=== PATIENT | male | born 1945 | race Caucasian/White ===

== ENCOUNTER → 2020-08-21 16:19 | Outpatient (CLI) | payer MEDICARE, OTHER, SELFPAY ==
[2020-08-21 18:32] LABS: Prostate Specific Antigen 5.74 ng/mL (0.10-4.00)
== END ==
PROVIDERS: Referring Provider Specialist; Visit Provider Specialist
DX: R97.20 Elevated prostate specific antigen [PSA] (principal); N40.3 Nodular prostate with lower urinary tract symptoms; N43.3 Hydrocele, unspecified
CPT/HCPCS: 36415; 51798; 81002; 84153; 99214

== ENCOUNTER → 2020-10-10 08:46 | Outpatient (CLI) | payer MEDICARE, OTHER, SELFPAY ==
[2020-10-10 10:22] LABS: BUN Creatinine Ratio 24.7 (6-22); Blood Urea Nitrogen 21 mg/dL (9-20); Calcium 9.5 mg/dL (8.4-10.2); Carbon Dioxide 26 mmol/L (22-32); Chloride 106 mmol/L (98-107); Estimated Glomerular Filt Rate > 60.0 mL/min (>60); Glucose 101 mg/dL (80-110); HEMOLYSIS < 15 (0-50); Potassium 4.5 mmol/L (3.4-5.1); Sodium 139 mmol/L (137-145)
== END ==
PROVIDERS: Referring Provider Specialist; Visit Provider Specialist
DX: R94.4 Abnormal results of kidney function studies (principal)
CPT/HCPCS: 36415; 80048

== ENCOUNTER → 2020-10-16 09:07 | Outpatient (CLI) | payer MEDICARE, OTHER, SELFPAY ==
--- NOTE | 2020-10-16 09:13 | DI.CT.S_ITS ---
PROCEDURE: CT CHEST ABD PEL W CON INDICATIONS: Prostate cancer TECHNIQUE: After the administration of oral and intravenous contrast, 5 mm thick sections acquired from the lung apices to the symphysis. 5 mm coronal and sagittal reformats were performed, with additional 7 mm coronal MIP reformats through the lungs. For radiation dose reduction, the following was used: automated exposure control, adjustment of mA and/or kV according to patient size. COMPARISON: None. FINDINGS: Image quality: Excellent. CHEST: Lungs and pleura: No acute airspace opacities. 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 No pleural effusions or pneumothorax. Central and peripheral airways appear patent and normal in caliber. Mediastinum: Heart size is normal. No pericardial effusion. A prosthetic aortic valve is present. Moderate coronary artery atherosclerotic calcifications are present. No mediastinal or hilar adenopathy by size criteria. Thoracic aorta and central pulmonary arteries are normal in size. Esophagus is normal in caliber. No hiatal hernia. Chest wall: No axillary or supraclavicular adenopathy by size criteria. Post sternotomy changes are present. A hypoattenuating nodule is seen in the inferior pole of the left thyroid measuring 1.4 x 0.9 cm. ABDOMEN: Solid organs: Liver is normal in size and enhancement. Gallbladder is mildly contracted. Biliary system is non dilated. Pancreas enhances normally. Spleen is normal in size and enhancement. A 1.6 cm coarse calcification is seen within the spleen is nonspecific but may be the sequela of prior hemorrhage or granulomatous disease, and is considered benign. No adrenal nodules. Kidneys demonstrate normal size and enhancement, without hydronephrosis. Small cysts are seen in the left kidney. Peritoneum and bowel: Bowel loops demonstrate normal wall thickness and caliber. Moderate stool is seen throughout the colon. No free fluid or air. Nodes and vessels: No retroperitoneal or mesenteric adenopathy by size criteria. Aorta and inferior vena cava are normal in size. Moderate aortic atherosclerosis. Miscellaneous: Small fat containing periumbilical hernia. PELVIS: Genitourinary: The prostate is mildly enlarged and contains coarse calcifications. The seminal vesicles are symmetric. The bladder is moderately distended with mildly thickened trabeculated wall diffusely, likely secondary to chronic outlet obstruction. Miscellaneous: No inguinal hernias. No significant lymphadenopathy is seen in the pelvis or inguinal regions. Bones: Mild degenerative changes are seen in the spine. No suspicious osteoblastic lesion. No vertebral body compression fractures. IMPRESSION: 1. Mild prostatomegaly which impinges upon the bladder base. Patient's primary prostate cancer is not well visualized with CT. 2. No significant lymphadenopathy in the chest, abdomen, or pelvis. No suspicious osseous lesion is seen. Recommend correlation with nuclear medicine bone scan that is scheduled for later the same day. 3. 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 4. Nonspecific 1.4 cm nodule in the inferior left thyroid lobe. Thyroid ultrasound may be obtained for further evaluation. Dictated by: Ignacio Cummings M.D. on 10/16/2020 at 10:14 Approved by: Ignacio Cummings M.D. on 10/16/2020 at 10:34
--- NOTE | 2020-10-16 09:13 | DI.NM.S_ITS ---
PROCEDURE: NM BONE SCAN WHOLE BODY RADIOPHARMACEUTICAL: 19.8 mCi Tc-99m MDP IV. INDICATIONS: Prostate cancer TECHNIQUE: Delayed whole-body scintigrams were obtained approximately 3-4 hours after intravenous injection of radiotracer. Anterior and posterior views were acquired from vertex to feet. Additional left and right oblique views of the pelvis were obtained. COMPARISON: [facility], CT, CT CHEST ABD PEL W CON, 10/16/2020, 10:20. FINDINGS: There is focal tracer uptake involving the right posteromedial 10th rib. This corresponds to an area of sclerosis seen on the comparison CT dated same day. There is also left posterior 9th rib tracer activity although much more subtle and no definite corresponding CT finding. Elsewhere, no suspicious tracer activity. Bilateral ankle and hindfoot tracer activity is likely degenerative. There is cervical facet tracer activity which is likely degenerative. IMPRESSION: Right 10th rib tracer activity which is suspicious for osseous metastasis given the CT appearance. Additional left 9th rib tracer activity which is technically indeterminate. Dictated by: José Antonio Purdy M.D. on 10/16/2020 at 14:22 Approved by: José Antonio Purdy M.D. on 10/16/2020 at 14:30
== END ==
PROVIDERS: Referring Provider Specialist; Visit Provider Specialist
DX: C61 Malignant neoplasm of prostate (principal); N32.89 Other specified disorders of bladder; J92.9 Pleural plaque without asbestos; E04.1 Nontoxic single thyroid nodule
CPT/HCPCS: 71260; 74177; 78306; A9503

== ENCOUNTER 2020-12-01 09:03 | Inpatient (IN) | payer MEDICARE, OTHER, SELFPAY ==
[2020-11-28 11:56] VITALS: BMI 23.6
[2020-12-01] VITALS (16 sets, daily range): BP systolic 94–145; BP diastolic 46–71; PULSE 60–88; RESP 11–18; TEMP 36.1–37.2; O2SAT 92–98; BMI 23.6
--- NOTE | 2020-12-01 | PATH_ITS ---
[facility] Accession Number: [id number] . 01 Material submitted: . PART A: lymph node - LEFT PELVIC LYMPH NODE PART B: lymph node - RIGHT PELVIC LYMPH NODE PART C: prostate - PROSTATE . 02 Diagnosis: A. Left Pelvic Lymph Node, Node Dissection: One lymph node negative for metastatic adenocarcinoma (0/1) by immunohistochemistry studies. . B. Right Pelvic Lymph Node, Node Dissection: One lymph node, negative for metastatic adenocarcinoma (0/1) by immunohistochemistry studies. . (Part C) CANCER CASE SUMMARY: . Prostatic adenocarcinoma with the following features: . Procedure: Radical retropubic prostatectomy and bilateral pelvic lymphadenectomy. Prostate size: Weight: 42 grams. Size: 5.2 x 4.5 x 4.2 cm. Histologic type: Acinar adenocarcinoma, NOS. Histologic grade: Grade group 5 (4+5=9/10). Percentage of pattern 4: 50-75% Percentage of pattern 5: 10-25% Percentage of pattern 3: 10-25% Tumor size: Tumor present throughout prostate gland. Extraprostatic extension: Multiple foci 2-8 mm (slices 4-14 of 15). Location of extraprostatic extension: Right and left anterior quadrants; right and left base; slice 14 of 15 near base. Urinary bladder neck invasion: Present; right and left margins positive for tumor. Seminal vesicle invasion: Present bilaterally. Lymphovascular invasion: Not identified. Perineural invasion: Present. Margins: Positive at multiple foci. right posterior apical margin: less than 1 mm. left posterior apical margin: less than 1 mm. right posterior slice 2 of 15, apex to base: 2-3 mm. left posterior slice 6 of 15, apex to base: less than 1 mm. right posterior slice 6 of 15, apex to base: less than 1 mm. left base margin: multiple foci, each less than 1 mm. right base margin: multiple foci, 1-4 mm. Treatment effect: No known presurgical therapy. Regional lymph nodes: Negative for tumor. Number of lymph nodes involved: 0. Number of lymph nodes examined: 2. . Pathologic stage classification (pTNM, AJCC 8th Edition): pT3b pN0 . MRV 12/08/2020 1633 Local . 02 Electronically signed: . Scarlett Parrish MD, Pathologist NPI- [id number] . 01 Gross description: . A. The specimen is received in formalin, labeled left pelvic lymph node and consists of a 1.5 x 0.7 x 0.4 cm johnson lymph node, which is entirely submitted in cassette A1. B. The specimen is received in formalin, labeled right pelvic lymph node and consists of a 3.3 x 1.2 x 0.6 cm johnson lymph node, which is serially sectioned and entirely submitted in cassettes B1-B3. C. The specimen is received in formalin, labeled prostate and consists of a 42-gram prostate measuring 5.2 cm from apex to base by 4.5 cm laterally by 4.2 cm from anterior to posterior. The vasa deferentia average 1.2 cm in length by 0.5 cm in diameter; the right seminal vesicle measures 4.2 x 1.5 x 0.8 cm; and the left seminal vesicle measures 3.2 x 1.0 x 0.9 cm. The external surface is johnson-pink with fibrinous adhesions and cautery artifact. The specimen is inked as follows: right anterior blue, right posterior green, left anterior yellow and left posterior black. The specimen is serially sectioned from apex to base into 15 slices to reveal johnson-pink focally cystic cut surfaces with ill-defined periurethral nodularity. There are multiple irregular ill-defined johnson-yellow areas ranging from 0.5-1.0 cm within the right anterior mid-prostate, the left anterior mid-prostate and surrounding the right urethra near the base. Assistant Curator sections are submitted. . C1: slice 1, right anterior apex, perpendicularly sectioned. C2: right posterior apex, perpendicularly sectioned. C3: left anterior apex, perpendicularly sectioned. C4: left posterior apex, serially sectioned. C5-C6: slice 2, adjacent to apex, bisected. C7-C8: slice 4, bisected. C9-C10: slice 5, bisected. C11-C12: slice 6, left mid-prostate, bisected. C13-C14: slice 6, right mid-prostate, bisected. C15: slice 10, right anterior mid-prostate. C16: slice 13, urethra. C17: slice 14, adjacent to base. C18-C19: slice 15, right base margin, perpendicularly sectioned. C20: slice 15, left base margin, perpendicularly sectioned. C21: right seminal vesicle vas deferens junction, seminal vesicle and vas deferens margins (en face). C22: left seminal vesicle vas deferens junction, seminal vesicle and vas deferens margins (en face). (EA:[id number]) /MRV 12/08/2020 1442 Local . 02 Microscopic: . An immunostain for CORBY is performed. The control stain showed appropriate reactivity. . RESULTS: Block A1: Negative for tumor. . Blocks B1, B2 and B3: Negative for tumor. . Blocks C2, C12, C14 and C20: Immunopositive epithelial cells present at inked margins. . Blocks C8 and C10: Region of interest not retail account representative on the IHC stained slide. . . * This test was developed and its performance characteristics determined by [employer]. It has not been cleared or approved by the U.S. Food and Drug Administration. The FDA has determined that such clearance or approval is not necessary. This test is used for clinical purposes. It should not be regarded as investigational or for research. . 02 Pathologist provided ICD-10: C61 . 02 CPT . 567764, 371496, 627003, R70072 Performed at: 01 [facility] [address] [id number] MD Willis Villeda MD Phone: [phone] Performed at: 02 [place] [id number] [place] [id number] MD Karla Gonzalez MD Phone: [phone]
[2020-12-01 09:54] LABS: Hematocrit 42.3 % (41-53); Hemoglobin 14.3 g/dL (13.5-17.5)
[2020-12-01] MEDS: LACTATED RINGERS 1,000 ML 42 ML IV ×5 (10:16→15:18)
--- NOTE | 2020-12-01 10:20 | PM.PREOP ---
Pre-operative Note Interval Note History & Physical reviewed/Exam performed by Physician: Yes Changes to H&P: No
--- NOTE | 2020-12-01 10:22 | PM.OP.1 ---
Operative Date/Time/Diagnoses Date of procedure: 12/01/20 Time of procedure: 14:30 Pre-op diagnosis: GROUP 5 adenocarcinoma the prostate Post-op diagnosis: same Procedure & Clinicians Procedure: 1. Radical retropubic prostatectomy and bilateral pelvic lymphadenectomy. Same procedure as scheduled: No (Repair of intraoperative rectal laceration-Dr. Callejas.) Indications: 1. GROUP 5 adenocarcinoma the prostate feels Surgeon: Aylin Berry Wind Turbine Performance Engineer: Mikayla Bender Click Yes if Unassisted: No Anesthesia Type: General, Spinal and Local (1.33% Exparel) Operative Notes Findings: 1. Left pelvic sunny packet with sparse amount of fat and no palpable lymph nodes. Obturator nerve and vessels observed and preserved. 2. Right pelvic sunny packet having considerably larger volume than that on the left without palpably abnormal lymph nodes. Obturator nerve and vessels observed and preserved. 3. Extensive adherence and obliteration of the plane between the DeNonvier's fascia and the anterior rectal wall. 4. Nodular prostate with intravesical median lobe. Closure Type: primary Specimen(s): other (1. Right and left pelvic nodes. 2. Prostate with attached seminal vesicles.) Applied: catheter ([address] catheter) and drain(s) (15 Palestinian Flash drain) Estimated Blood Loss (mL): 600 Blood products transfused: none Tourniquet time (min): 0 Procedure in detail: The patient was positioned in supine following successful placement of Duramorph spinal. General anesthesia was induced. The abdomen, genitalia, and groin were then prepped and draped in sterile fashion. A 22 Palestinian Babb catheter was then inserted lower urinary tract, the bladder drained, and placed to gravity drainage. A midline infraumbilical incision was made just above the pubic symphysis through the layers of the midline skin sparse subcutaneous fat and rectus abdominis fascia using cautery, sharp, and blunt technique. The rectus musculature was retracted laterally. The anterior and lateral pelvic sidewall was then exposed using blunt technique. Next, bilateral pelvic lymph node dissection was conducted using the same steps of maneuvers as follows the thin adventitia overlying the external iliac vein was carefully divided along its length. The sunny packet was then carefully dissected using blunt and suction technique from the confines of the obturator fossa. The obturator vasculature and obturator nerve were identified, observed, and preserved during the dissection. The proximal and distal extents of the sunny packet were then divided using the LigaSure Impact device. Each specimen was handed off the operating room table and submitted to pathology for routine gross and microscopic examination. The endopelvic fascia on either side of the prostate were then carefully divided, exposing the levator musculature of the pelvic floor. Santorini plexus was then gathered with a Fabricio clamp. A 0 PDS was then placed using in over hand [id number] technique and tied down created ligature of proximal aspect of Center needs vascular complex. Next, the LigaSure Impact device was used to divide the dorsal venous complex between ligature in the prostate, thus exposing the prostatic apex. Attempts to mobilize the apically prostate were met with challenge due to adhesion the anterior rectal wall and due to the patient's pelvic anatomy which was a narrow but deep pelvic bony configuration. The bladder neck was then divided from the prostatic base using blunt and cautery technique. Once the bladder was opened intravesical median lobe was noted the cautery pen was used to create incision just posterior the protruding median lobe. The appropriate plane was then developed between the bladder neck musculature and prostate proper period further careful dissection the midline identified the and feel the vas. These 2 structures were individually isolated, large hemoclips were then applied proximally distally and they were divided. Further meticulous dissection of each of the seminal vesicles was then performed with application of medium hemo lock clips where indicated for hemostasis. Now with the base of the prostate mobilized along with division of the ampulla of as, and mobilization the seminal vesicles, the posterior lateral vascular pedicles were then addressed. Careful, and meticulous blunt technique was then utilized to isolate the posterior lateral vascular pedicles successively with division of same with the impact ligature device. The plane between the posterior prostate and anterior rectal wall were largely obliterated and required continued, and extensive meticulous dissection. Eventually the prostate was removed in its entirety with attached seminal vesicles. Careful inspection revealed a midline longitudinal rectal laceration without gross contamination. Intraoperative general surgery consultation was requested and Dr. Callejas kindly responded. She then proceeded with a 2 layer repair, the details of which can be found in her consultation and operative report. The mucosa of the bladder neck was then the face using interrupted 4 0 Monocryl. Additional repair of the bladder neck using a fishmouth technique with application of 0 PDS was performed at the 5 and 7:00 a.m. positions. Now 2 0 Monocryl replaced from outside to within the urethral stump at the 2, 4, 6, 8, and 10 o'clock positions. The same sutures were then brought through the neobladder neck from inside out at the same positions over a 20 Palestinian silicone catheter. The catheter balloon was then inflated to 15 cc and gentle traction was applied to reapproximate the neobladder neck to the urethral stump. Each of the anastomotic sutures were then tied down snugly under direct visualization. A 15 Palestinian Flash drain was then position across the space of Retzius and lateral aspects of the pelvic recess through a separate stab incision to the right of the midline incision. The drain was secured in place using 2 0 silk and and will technique. Exparel local anesthetic was then infiltrated at the drain site, the midline fascial plane period and midline skin incision. The midline fascia was then closed with 0 PDS beginning at the superior, and also the inferior apex of the incision in a running technique. Each of the sutures of the and tied to 1 another at approximately the midpoint using a buried technique. The subcutaneous Claudio's fascia was then closed with a running 2 0 Vicryl. The skin layer was reapproximated using a running subcuticular technique with 4 0 Monocryl. Telfa dressing was then tailored to fit the size of the incision line and the drain site, and transparent op site was then applied over both the incision and the drain site for file occlusion. Babb catheter was irrigated clear and placed to gravity drainage. The patient was then awakened, was transferred to a gurney, and transported to PACU in stable condition. Complications: other (Intraoperative rectal laceration noted and repaired (Dr. Callejas).) Post-operative Condition: stable Disposition: PACU Plan for aftercare: Admit to acute care.
--- NOTE | 2020-12-01 10:23 | PM.HP.1 ---
History of Present Illness History of Present Illness Date Patient Seen: 12/01/20 Time Patient Seen: 10:23 Date of Onset of Symptoms: 08/26/20 Chief complaint: Prostatectomy-Radical Retropubic w/PLND Narrative: Alex is a 75-year-old white male originally referred for evaluation of PSA of 5.7 for he underwent TRUS/Bx on 08/26/2020. Pathology demonstrated large volume, GROUP 5, adenocarcinoma the prostate. He has complained of severe lower urinary tract symptoms including nocturia times 6-8x. He has had some improvement on tamsulosin but is plagued by intermittent lightheadedness. Metastatic survey including CT of chest abdomen pelvis and whole-body bone scan were performed. There was an uptake in the 10th rib with no abnormality seen on CT imaging. He and his report that he has had previous chest wall trauma and has also had sternotomy. Because of severe lower urinary tract symptoms and high-grade disease they have opted for prostate removal were primary radiotherapy. They understand after lengthy discussion that he will on likely be cured the a prostatectomy alone given his unfavorable high risk group prostate cancer. 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 Brother Thyroid disease UTI (urinary tract infection) Social History: household members spouse Prior Living Arrangements House Safety & Behavioral: Feels Safe in Current Yes Environment Been Physically Hurt or No Threatened By a Person Suicidal Ideation Description None Suicide Plan Description No Plan Tobacco & Substance use: Tobacco type cigarettes Smoking Status Former smoker alcohol intake never Substance Use Type does not use Meds Home Medications and Allergies Home Medications Medication Instructions Recorded Confirmed Type amlodipine 5 mg tablet 5 mg PO DAILY 08/21/20 12/01/20 History astaxanthin 4 mg capsule 4 mg PO DAILY 08/21/20 12/01/20 History lithium aspartate 5 mg capsule 5 mg PO DAILY 08/21/20 12/01/20 History vitamin D3-red 1 cap PO DAILY 08/21/20 11/28/20 History bgnt-oaimkirlugb-nzrvqdnumkhj 5,000 unit-200 mg capsule zinc 50 mg tablet 50 mg PO DAILY 08/21/20 11/28/20 History ciprofloxacin HCl 500 mg tablet 500 mg PO BID #6 tab 09/01/20 12/01/20 Rx finasteride 5 mg tablet 5 mg PO DAILY #90 tab 10/23/20 12/01/20 Rx tamsulosin 0.4 mg capsule 0.8 mg PO BEDTIME #90 cap 10/23/20 12/01/20 Rx ibuprofen 200 mg PO Q6H PRN 11/28/20 12/01/20 History ipratropium bromide [Atrovent] 2 spray INTRANASAL TID PRN 11/28/20 12/01/20 History Allergies Allergy/AdvReac Type Severity Reaction Status Date / Time gluten AdvReac Severe GI Upset, Verified 11/28/20 12:15 autoimmune reaction lactase [From Dairy Aid] AdvReac Mild Congested Verified 12/01/20 09:50 Sugars, Metabolically Active AdvReac Mild ITCHING Verified 12/01/20 09:50 Review of Systems Review of Systems ROS: Yes All systems reviewed with the patient and are negative except as otherwise documented Exam Narrative Exam Narrative: He is a well-developed and well-nourished aging white male looking younger than stated age. Head/neck-sclera clear an pupils are equal round bilaterally. Chest-clear, equal, and unlabored expansion bilaterally. Heart-regular rhythm in regular rate. No abnormal heart tones heard. Objective Labs Result Diagrams: 12/01/20 09:44 Labs: Laboratory Results - last 24 hr 12/01/20 09:44 Hgb 14.3 Hct 42.3 Assessment & Plan Assessment & Plan narrative: Assessment: 1. Adenocarcinoma the prostate. 2. Severe lower urinary tract symptoms. Plan: 1. Radical retropubic prostatectomy and bilateral pelvic lymphadenectomy. Reviewed findings and discussed impression. Extensive preoperative metastatic survey and discussions with the patient his and supportive daughter, Catrina, who had visited from her home in [place] for preoperative planning. The common risks, possible complications, perioperative limitations/restrictions, and reasonable expectations of outcomes and recovery following radical prostatectomy were discussed at length and in detail. In particular, he understands that he will unlikely be cured from a single modality given high volume, high risk, unfavorable histology prostate cancer. He and family members wished to proceed.
[2020-12-01] MEDS: CEFAZOLIN 2 GM/100 ML FROZ.PIGGY IV ×3 (11:13→19:44)
[2020-12-01] MEDS: ACETAMINOPHEN IV 1,000 MG/100 ML VIAL 400 MG IV (11:30)
[2020-12-01] MEDS: BUPIVACAINE LIPOSOME 266 MG/20 ML VIAL INJ (11:50)
[2020-12-01] MEDS: VANCOMYCIN 1,000 MG VIAL 1000 MG TOP (14:01)
[2020-12-01] MEDS: GENTAMICIN 80 MG in SODIUM CHLORIDE 0.9% 100 ML 102 ML IRR (14:04)
[2020-12-01] MEDS: GENTAMICIN 160 MG in SODIUM CHLORIDE 0.9% 100 ML 104 ML IV (14:50)
--- NOTE | 2020-12-01 16:23 | SUR.PHASEI ---
SBAR report called to Diane Daniels
--- NOTE | 2020-12-01 16:54 | SUR.PHASEI ---
Addendum entered by Rhianna Madsen R.N. 12/01/20 17:23: Belongings with patient. SCD on. Call light in reach. Original Note: Pt transfered to room 211 in bed, alert, oriented. Denies Pain. Bedside hand-off to Diane LAWRENCE with evaluation of dressings/drain. called to update. No answer. No message left.
[2020-12-01 19:45] LABS: Hematocrit 31.9 % (41-53); Hemoglobin 10.9 g/dL (13.5-17.5)
--- NOTE | 2020-12-02 00:41 | PC.NURSE ---
Addendum entered by Reyna Anaya R.N. 12/02/20 06:20: Able to perform I.S. to 2800 after explanation for use and rationale for use. Pt reports left hip pain 3/10. Refuses ice to site. No c/o surgical pain. Scant rectal bleeding on pad. Pad changed and pt able to assist with turning in bed. Urine per saavedra is light yazmin in color. Addendum entered by Reyna Anaya R.N. 12/02/20 03:03: Inspected dressing to lower central abdomen. Dressing with spotty, shadowy drainage visible. Saavedra catheter and DAMIEN drain emptied and measured. Pt does state has had difficulty moving left leg since surgery. States movement of left leg causes left hip pain. Pt states has sensation to LLE and feet BL are equally cool to touch. Warm blanket to left hip. Pt does demonstrate to this typewriter operator automatic is able to move left leg into position of flexion. Encouraged pt to discuss this with MD in the a.m. if persists. Addendum entered by Reyna Anaya R.N. 12/02/20 01:11: Pt does report feeling as though bladder was filling has resolved with position change in bed. Pt no longer bolt upright in bed, but semi-reclining. Continues to refuse offer for pain medications. Original Note: Noted pt's post op orders on emar are nonexistent to manage pain and diet order is NPO. Phone call to Dr. Berry to clarify. Also informed MD pt c/o feeling bladder fullness. Pt's position in bed was changed to encourage drainage into saavedra bag. Catheter is secured with tension to left leg. Per Dr. Berry, do not irrigate catheter and inform and reassure pt these are likely bladder spasms and will resolve. Pt does report discomfort 1/10 and does not wish analgesia at this time. BL calf scd's in place. Taking oral fluids as offered. Encouraged to call for needs. Urine per saavedra is yazmin in color with some slough/sediment in tubing.
[2020-12-02] MEDS: SODIUM CHLORIDE 0.9% 500 ML 21 ML IV (01:10)
[2020-12-02 04:01] VITALS: BP 112/51; PULSE 62; RESP 18; TEMP 36.6; O2SAT 99
[2020-12-02] MEDS: OXYCODONE IR 5 MG TABLET PO ×2 (05:13→13:35)
--- NOTE | 2020-12-02 07:35 | P.PN_ITS ---
Subjective Subjective Date Patient Seen: 12/02/20 Time Patient Seen: 07:35 Interval history: Patient is a 75-year-old white male postoperative day 1. Status post radical retropubic prostatectomy and bilateral pelvic lymphadenectomy. He denies interval issues with pain control or tolerance of clear liquid diet. He states that he feels some pressure and g weaned as though he may have to pass some gas or material per rectum but has not yet done so. He complains of some inguinal pain when he attempts to lift his left thigh by left hip flexion. He denies paresthesia or pain in the extremity per se. Exam Vital Signs (past 8 hours): - 12/01/20 23:52 12/02/20 04:01 Temperature 97.8 F 97.9 F Pulse Rate 68 62 Respiratory Rate 18 18 Blood Pressure 107/53 L 112/51 L Pulse Oximetry 98 99 Oxygen Delivery Method Room Air Oxygen Flow Rate 0 Narrative Exam Narrative: He is resting comfortably, sitting up in bed, in no acute distress. Chest-equal and unlabored expansion bilaterally. Heart-regular rate and rhythm. Abdomen-dressings and drain are intact. Contours flat without distention or tenderness. Genitalia-indwelling Babb with clear outflow. Extremities-no edema, cyanosis, or clubbing. He is able to move the left hip in all directions but does complain of pain on hip flexion. 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 Brother Thyroid disease UTI (urinary tract infection) Social History marital status: number of children: 3 household members: spouse Smoking Status: Former smoker alcohol intake: never caffeine: Yes Assessment & Plan Assessment & Plan narrative: Assessment: 1. Stable postop day 1. Status post radical retropubic prostatectomy and bilateral pelvic lymphadenectomy. Intraoperative findings and requirement of repair of rectal laceration explained patient. 2. Left hip flexion pain. Differential could be retractor positioning or perhaps some irritation or stretching of a pelvic nerve. He has no paresthesias so I doubt anything related to a spinal could explain his complaint at this time. Plan: 1. And increased activity with assistance. 2. Continue clear liquids until patient passes gas-for recommendations of Dr. Callejas. 3. Pathology pending. Quality VTE Deep Vein Thrombosis/Pulmonary Embolism Present on Admission: No
[2020-12-02 07:50] VITALS: BP 94/53; PULSE 74; RESP 16; TEMP 36.5; O2SAT 98
[2020-12-02 08:53] VITALS: PULSE 62; RESP 16; O2SAT 98
--- NOTE | 2020-12-02 11:07 | PM.OP.1 ---
Operative Date/Time/Diagnoses Date of procedure: 12/01/20 Time of procedure: 02:30 Pre-op diagnosis: rectal tear during radical prostatectomy Post-op diagnosis: same Procedure & Clinicians Procedure: repair of rectal enterotomy Same procedure as scheduled: No Indications: linear, anterior rectal enterotomy, full thickness of anterior wall. 5cm in length. Surgeon: Ivana Callejas Rolling Machine Tender: Aylin Berry Anesthesia Type: General Operative Notes Findings: 5cm full thickness, anterior rectal enterotomy Closure Type: primary Specimen(s): none sent Estimated Blood Loss (mL): 10 Procedure in detail: Prep diagnosis: Rectal injury during radical prostatectomy Postop diagnosis: Same Operative procedure: Repair of full thickness, 5 cm, anterior wall rectal laceration. Surgeon: Jane Callejas MD contract assistant: Aylin Berry MD Findings: Clean, full-thickness anterior wall tear. Of the rectum. Approximately 5 cm in length. Procedure: Through the existing incision. I did a primary repair of the anterior wall of the rectum. Beginning with 2 0 Vicryl for initial layer of closure in a running fashion. Followed by 3-0 silk suture interrupted as an over-sew. Discussion had before I left the OR of drain placement over the repair for observation. I did not recommend any additional antibiotics above and beyond what her normal used in a prostatectomy. Drink be removed once patient is having bowel movements. Complications: none Post-operative Condition: stable Plan for aftercare: Hospital admit for postop care
[2020-12-02 11:49] VITALS: BP 116/55; PULSE 68; RESP 16; TEMP 36.4; O2SAT 95
--- NOTE | 2020-12-02 11:59 | PM.PN.1 ---
Subjective Subjective Date Patient Seen: 12/02/20 Time Patient Seen: 11:00 Exam Vital Signs (past 8 hours): - 12/02/20 04:01 12/02/20 07:50 12/02/20 08:53 Temperature 97.9 F 97.7 F Pulse Rate 62 74 62 Respiratory Rate 18 16 16 Blood Pressure 112/51 L 94/53 L Pulse Oximetry 99 98 98 Oxygen Delivery Method Room Air Oxygen Flow Rate 0 GI Palpation: soft Other: flat, incision dressing intact. drain is serosang. 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 Brother Thyroid disease UTI (urinary tract infection) Social History marital status: number of children: 3 household members: spouse Smoking Status: Former smoker alcohol intake: never caffeine: Yes Assessment & Plan Assessment & Plan narrative: No clinical evidence of postop complication related to rectal repair. Once patient is passing gas/flatus, can advance diet as tolerated. Leave drain until after 1st BM Quality VTE Deep Vein Thrombosis/Pulmonary Embolism Present on Admission: No
--- NOTE | 2020-12-02 13:30 | PC.NURSE ---
Bladder scan d/t pt complaint of abd discomfort: 6mL. Babb draining appropriately. Pt medicated for discomfort.
[2020-12-02 16:45] VITALS: BP 128/61; PULSE 73; RESP 20; TEMP 37.7; O2SAT 100
[2020-12-02] MEDS: AMLODIPINE 5 MG TABLET PO (17:00)
--- NOTE | 2020-12-02 20:33 | PC.NURSE ---
Pt has had relatively uneventful evening. Pt lungs clear, SpO2 97% RA Denies discomfort when asked. Ambulated length of hallway w/o incidence. Dsg to abdomen w/ some shadow old drainage HL right hand intact/patent. DAMIEN intact/patent. Babb cath patent light pink urine, Call light w/in reach, pt calls appropriately for needs. Continue w/plan of care.
[2020-12-02 21:45] VITALS: BP 107/78; PULSE 88; RESP 19; TEMP 38.2; O2SAT 95
[2020-12-03] VITALS (7 sets, daily range): BP systolic 104–129; BP diastolic 56–63; PULSE 71–94; RESP 14–19; TEMP 36.7–38.1; O2SAT 94–98
[2020-12-03] MEDS: OXYCODONE IR 5 MG TABLET PO ×2 (00:34→15:39)
[2020-12-03] MEDS: ZINC SULFATE 220 MG CAPSULE 50 MG PO (08:41)
[2020-12-03] MEDS: IPRATROPIUM 0.06% NASAL 15 ML 1 SPRAY NASAL (08:41)
[2020-12-03] MEDS: SODIUM CHLORIDE 0.9% FLUSH 10 ML IV ×2 (08:41→20:58)
[2020-12-03] MEDS: AMLODIPINE 5 MG TABLET PO (08:41)
[2020-12-03] MEDS: CHOLECALCIFEROL (VITAMIN D3) 5,000 UNIT TABLET 5000 UNIT PO (08:41)
--- NOTE | 2020-12-03 11:50 | PM.PN.1 ---
Subjective Subjective Date Patient Seen: 12/03/20 Time Patient Seen: 11:51 Interval history: The patient is postoperative day 2. Status post radical prostatectomy December 01, 2020. He denies interval issues with pain control. He ambulated about the room without pain or issue yesterday. He has been passing very small amounts of flatus and a small amount of fluid per rectum. He does have sensation of some urinary urgency. Bladder scans of demonstrated complete bladder emptying with functioning Babb catheter. Laboratories from today are pending. Exam Vital Signs (past 8 hours): - 12/03/20 07:21 12/03/20 11:23 Temperature 98.0 F 98.4 F Pulse Rate 74 71 Respiratory Rate 14 16 Blood Pressure 104/56 L 121/59 L Pulse Oximetry 96 96 Oxygen Delivery Method Room Air Oxygen Flow Rate 0 Narrative Exam Narrative: He is resting upright in bed in no acute distress. Head/neck-sclera clear pupils are equal and round. Neck is without visible adenopathy or JVD. Chest-clear and unlabored expansion bilaterally. Heart-rate is regular and normal. Abdomen-bowel tones are normal and active. Contours flat without distention. Dressings are intact. DAMIEN drain has scant serosanguineous output. Urine is light yazmin to very light maroon without clot. Extremities-no edema, pallor, or cyanosis. 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 Brother Thyroid disease UTI (urinary tract infection) Social History marital status: number of children: 3 household members: spouse Smoking Status: Former smoker alcohol intake: never caffeine: Yes Assessment & Plan Assessment & Plan narrative: Assessment: 1. Stable postop day 2. Status post radical retropubic prostatectomy and bilateral pelvic lymphadenectomy. 2. Intraoperative anterior rectal laceration status post repair by Dr. Callejas. 3. Pathology pending. Plan: 1. Increase activity. 2. Continued to observe return of bowel function before advancing diet to general per discussions with Dr. Callejas. 3. Pathology pending. Will follow-up by phone as outpatient when available. 4. Catheter care and use training. Quality VTE Deep Vein Thrombosis/Pulmonary Embolism Present on Admission: No
[2020-12-03 15:28] LABS: Add Manual Diff / Slide Review NO; Basophils Absolute Auto 0 /uL (0-100); Basophils Percent Auto 0.3 % (0-2); Eosinophils Absolute Auto 0 /uL (0-450); Eosinophils Percent Auto 0.3 % (2-4); Hematocrit 27.3 % (41-53); Hemoglobin 9.6 g/dL (13.5-17.5); Lymphocytes Absolute Auto 1100 /uL (1100-4500); Lymphocytes Percent Auto 12.6 % (25-40); Mean Corpuscular HGB Conc 35.2 % (30-36); Mean Corpuscular Hemoglobin 33.6 PG (26-34); Mean Corpuscular Volume 95.6 fL (80-100); Monocytes Absolute Auto 600 /uL (0-900); Monocytes Percent Auto 7.4 % (3-14); Neutrophils Absolute Auto 6800 /uL (1500-7000); Neutrophils Percent Auto 79.4 % (50-75); Platelet Count 107 X10^3/uL (150-400); Red Blood Cell Count 2.86 X10^6/uL (4.5-5.9); White Blood Cell Count 8.6 X10^3/uL (4.5-11.0)
--- NOTE | 2020-12-03 16:07 | CM.DANOTE ---
DCP/Assessment: Reviewed chart. Patient is a 75yr old male admitted to [facility] for elective urology procedure performed by Dr. Berry on 12-01-20. PCP is Todd Jaquez. Primary payor is 1)Medicare 2)[facility]. Met with patient and spouse this AM explained CM/SW role. Patient alert and oriented having meal at time of visit. Patient reports that he is completely I in all ADL's. At this time d/c needs unknown. CM team will continue to follow if needs arise. P: Home when stable. ARAM Jiménez Discharge Planning/Care Management Advanced directive, confirm from FAMILY Start: 12/01/20 20:40 Freq: Q24H Status: Active Protocol: Document 12/01/20 20:40 KMD (Rec: 12/01/20 20:41 KMD [id number]) Advance Directive, confirm on record Time 20:41 Person contacted Patient Copy received No Document 12/02/20 20:24 KMD (Rec: 12/02/20 20:24 KMD [id number]) Advance Directive, confirm on record Time 20:41 Person contacted Patient Copy received No CM Discharge Assessment Start: 12/03/20 16:05 Freq: Status: Active Protocol: Document 12/03/20 16:05 KJS (Rec: 12/03/20 16:07 KJS [id number]) Discharge Planning Assessment Assigned Conservation Educator ARAM Jiménez Contact Information Abbie (spouse) # Advance Directives? Yes Advance Directives on File No History Provided By Patient,Family Member,Medical Record Prior Living Arrangements House Household Members spouse Type of transporation used prior to Drives own vehicle admit Independent with ADL's Yes Is patient alert and oriented? Yes Caregiver for Another No Barriers to Discharge No Discharge Plan Home Transportation Arrangement Family to provide transport. Referrals Initiated Other Additional Comment Continue to follow for d/c planning needs. Whiteboard Updated in Patient Room with Yes name and ext. # of Conservation Educator Review Status In Process Next Review Type Continued Stay Review Pre-Anesthesia Assessment Start: 11/28/20 11:56 Freq: Status: Active Protocol: Document 11/28/20 11:56 CAB (Rec: 11/28/20 12:41 CAB [id number]) Pre-Anesthesia Assessment Patient Information Reviewed Via Phone Assessment Assessment Completed With Spouse Comment Pt gave verbal consent for PAC with his , Abbie Comment Labs in September @ [facility]-COVID screen-needs to schedule, number given Primary Care Provider Todd Jaquez Seen Specialist in Last 12 Months Yes Specialist Seen Product Designer,ENT,Urologist Primary Language Mongolian Guest Services Director Required No Height 177.8 cm Weight 74.843 kg Body Mass Index (BMI) 23.6 Hearing Ability Hard of Hearing Visual Impairment No Limitations Visual Assist None Dentition Type Teeth, Natural Present Barriers to Learning Auditory Hx Anesthesia Reactions No Hx Family Anesthesia Reaction No Hx Malignant Hyperthermia No Hx Blood Transfusions No Anesthesia Review Requested No alcohol intake never Smoking Status Former smoker Tobacco type cigarettes how long ago did patient quit smoking Quit in his 20's Substance Use Type does not use Musculoskeletal Symptoms Neck Pain History of Falling (Recent or History of No ) Patient is completely paralyzed or No completely immobile Mental Status Oriented to own ability Is patient on oxygen? No Does patient have WAGNER/SOB Yes Hx Sleep Apnea No Currently Taking a Beta Doris No Can You Climb a Flight of Stairs Without No SOB Hx Chest Pain Yes: 2019. Current squeezing left arm w/w/o exercise Hx SOB Yes Hx Syncope or Dizziness Yes: Dizziness Anti-Coagulant Therapy No Has a Product Designer Yes: Dr. Castro-11/13/20 Cardiac Testing Yes: Heart cath 11/28/20-results pending-negative per Hx Pacemaker/ICD No Pacemaker Rep Required? No Comment Cardiac records scanned Diet Type At Home Regular,Gluten Free dysphagia No Bladder Pattern Frequency,Nocturia,Urgency Urinary Catheter Present No Hx Urinary Self Catheterization No Diabetes No Hx Drug Resistant Organism No Presence of External or Internal Medical Yes: CABG x 1, anna marie eye, toe Devices Have you had any close contact with No someone diagnosed with COVID-19? Marital Status Lives With spouse Prior Living Arrangements House Number of Floors (Floors) 3 or More Floors Support System Spouse Does the Patient Have Assistance After Yes Surgery Patient Discharge Plan Description Return Home Comment Not advised on length of stay per surgeon Feels Safe in Current Environment Yes Been Physically Hurt or Threatened By a No Person in Current Environment Do you have thoughts of harming yourself None or others? Are you currently considering suicide? No Do you have a plan to hurt yourself or No Plan others? Do You Have Any Spiritual Beliefs That No May Affect Your HC Choices? Do You Have Any Cultural Practices That No May Affect Your HC Choices? Comment Woody Who Can We Speak to About Patient's Care Family, friends Identifying Code for Release of Patient Declines to issue Information Health Care Proxy/Next of Kin Abbie () Health Care Proxy Emergency Contact Name Abbie () Diana (daughter ) Emergency Contact Phone Number Abbie: [phone] Diana: [phone] Advance Directives? Yes Advance Directives on File No Requested Patient Bring Advanced Yes Directives DOS Power of Telegraph And Teletype Operator Yes Power of Telegraph And Teletype Operator Name Abbie () Power of Telegraph And Teletype Operator PAC Instructions Durable medical equipment, Medications to take/avoid,No ETOH/petroleum product on skin DOS,NPO,Post-op transportation,Pre-surgical wash,Sturdy shoes/comfortable clothes,Do not bring valuables and remove jewelry
[2020-12-04 03:23] VITALS: BP 124/62; PULSE 68; RESP 18; TEMP 37.3; O2SAT 97
[2020-12-04] MEDS: OXYCODONE IR 5 MG TABLET PO (07:00)
[2020-12-04 08:45] VITALS: BP 123/65; PULSE 80; RESP 17; TEMP 37.1; O2SAT 98
[2020-12-04] MEDS: AMLODIPINE 5 MG TABLET PO (08:58)
[2020-12-04] MEDS: ACETAMINOPHEN 325 MG TABLET 650 MG PO ×2 (08:58→22:09)
[2020-12-04] MEDS: SODIUM CHLORIDE 0.9% FLUSH 10 ML IV ×2 (08:58→22:10)
[2020-12-04] MEDS: ZINC SULFATE 220 MG CAPSULE 50 MG PO (09:00)
[2020-12-04] MEDS: CHOLECALCIFEROL (VITAMIN D3) 5,000 UNIT TABLET 5000 UNIT PO (09:00)
[2020-12-04 11:32] VITALS: BP 113/54; PULSE 69; RESP 16; TEMP 36.5; O2SAT 97
--- NOTE | 2020-12-04 12:24 | P.PN_ITS ---
Subjective Subjective Date Patient Seen: 12/04/20 Time Patient Seen: 12:24 Interval history: Tolerating clear liquids. +flatus, no BM Exam Vital Signs (past 8 hours): - 12/04/20 08:45 12/04/20 11:32 Temperature 98.8 F 97.7 F Pulse Rate 80 69 Respiratory Rate 17 16 Blood Pressure 123/65 113/54 L Pulse Oximetry 98 97 Oxygen Delivery Method Room Air Oxygen Flow Rate 0 Narrative Exam Narrative: abdomen flat and soft with incision tenderness. Drain serous Objective Labs Result Diagrams: 12/03/20 14:23 Labs: Laboratory Results - last 24 hr 12/03/20 14:23 WBC 8.6 RBC 2.86 L Hgb 9.6 L Hct 27.3 L MCV 95.6 MCH 33.6 MCHC 35.2 RDW 13.0 Plt Count 107 L Neut % (Auto) 79.4 H Lymph % (Auto) 12.6 L [place] % (Auto) 7.4 Eos % (Auto) 0.3 L Baso % (Auto) 0.3 Neut # (Auto) 6800 Lymph # (Auto) 1100 [place] # (Auto) 600 Eos # (Auto) 0 Baso # (Auto) 0 PFSH Medical History Bilateral hydrocele Coronary artery disease Elevated PSA Fragile skin Hearing impaired HLD (hyperlipidemia) HTN (hypertension) Lower urinary tract symptoms (LUTS) Migraines Nodular prostate with lower urinary tract symptoms Prostate cancer Valvular heart disease Surgical History Aortic valve replaced (07/2018) History of appendectomy History of cardiac cath (11/28/20) History of surgery Hx of bilateral cataract extraction 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 Brother Thyroid disease UTI (urinary tract infection) Social History marital status: number of children: 3 household members: spouse Smoking Status: Former smoker alcohol intake: never caffeine: Yes Assessment & Plan Assessment & Plan narrative: advance diet as tolerated. restart stool softners. Quality VTE Deep Vein Thrombosis/Pulmonary Embolism Present on Admission: No
--- NOTE | 2020-12-04 13:24 | CM.DPNOTE ---
DCP Note Met w/patient and his spouse. Provided IMM. Patient will be staying this evening but is hopeful to return home tomorrow. Patient and spouse confident and eager about return home when medically cleared. Will continue to follow in case in [place] needs or concerns arise. ADDY
[2020-12-04 15:20] VITALS: BP 102/52; PULSE 68; RESP 16; TEMP 36.5; O2SAT 98
[2020-12-04] MEDS: BISACODYL 10 MG SUPP PR (18:50)
[2020-12-04 21:15] VITALS: BP 146/74; PULSE 77; RESP 17; TEMP 37.8; O2SAT 99
[2020-12-04] MEDS: SENNOSIDES 8.6 MG TABLET 17.2 MG PO (22:10)
[2020-12-04 22:12] VITALS: TEMP 37
[2020-12-05] VITALS: BP 135/65; PULSE 88; RESP 16; TEMP 37.1; O2SAT 96
[2020-12-05 03:00] VITALS: BP 136/68; PULSE 99; RESP 16; TEMP 36.4; O2SAT 96
[2020-12-05] MEDS: SENNOSIDES 8.6 MG TABLET 17.2 MG PO (09:04)
[2020-12-05] MEDS: ZINC SULFATE 220 MG CAPSULE 50 MG PO (09:04)
[2020-12-05] MEDS: CHOLECALCIFEROL (VITAMIN D3) 5,000 UNIT TABLET 5000 UNIT PO (09:04)
[2020-12-05] MEDS: SODIUM CHLORIDE 0.9% FLUSH 10 ML IV (09:05)
[2020-12-05 09:23] VITALS: BP 133/60; PULSE 77; RESP 16; TEMP 36.6; O2SAT 100
--- NOTE | 2020-12-05 09:55 | P.PN_ITS ---
Subjective Subjective Date Patient Seen: 12/04/20 Time Patient Seen: 07:00 Interval history: The patient is postop day 3. Status post radical prostatectomy. He is tolerating clear liquid diet, but did receive a general launch yesterday and a just a salmon. He has had no nausea or vomiting. He is passing small amount of gas but has not yet had a bowel movement. Pain control has not been an issue. He has ambulated without assistance independently Exam Vital Signs (past 8 hours): - 12/05/20 03:00 12/05/20 09:23 Temperature 97.6 F 97.8 F Pulse Rate 99 H 77 Respiratory Rate 16 16 Blood Pressure 136/68 133/60 Pulse Oximetry 96 100 Oxygen Delivery Method Room Air Oxygen Flow Rate 0 Narrative Exam Narrative: Is walking about the room and is in no distress. Abdomen is flat and nontender dressings and drain are intact. Babb is draining clear straw-colored urine without bladder clot. Extremities are without edema, or cyanosis. 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 Brother Thyroid disease UTI (urinary tract infection) Social History marital status: number of children: 3 household members: spouse Smoking Status: Former smoker alcohol intake: never caffeine: Yes Assessment & Plan Assessment & Plan narrative: Assessment: 1. Stable postop day 3. Status post radical prostatectomy and recognized i ntraoperative anterior rectal laceration repaired by Dr. Callejas. 2. Catheter care and use training-begin today. 3. Pathology pending Plan: 1. Continue increased activity. 2. Advance diet to general when evidence of free passage of flatus or bowel movement. 3. Follow-up pathology when discussed with patient when final. Quality VTE Deep Vein Thrombosis/Pulmonary Embolism Present on Admission: No
--- NOTE | 2020-12-05 09:59 | PM.DS.1 ---
History of Present Illness History of Present Illness Chief complaint: Prostatectomy-Radical Retropubic w/PLND Narrative: Alex is a 75-year-old white male originally referred for evaluation of PSA of 5.7 for he underwent TRUS/Bx on 08/26/2020. Pathology demonstrated large volume, GROUP 5, adenocarcinoma the prostate. He has complained of severe lower urinary tract symptoms including nocturia times 6-8x. He has had some improvement on tamsulosin but is plagued by intermittent lightheadedness. Metastatic survey including CT of chest abdomen pelvis and whole-body bone scan were performed. There was an uptake in the 10th rib with no abnormality seen on CT imaging. He and his report that he has had previous chest wall trauma and has also had sternotomy. Because of severe lower urinary tract symptoms and high-grade disease they have opted for prostate removal were primary radiotherapy. They understand after lengthy discussion that he will on likely be cured the a prostatectomy alone given his unfavorable high risk group prostate cancer. Discharge Providers Provider Date of admission: 12/01/20 09:03 Discharge Date: 12/05/20 Primary care physician: Todd Jaquez DO Discharge provider: Aylin Berry MD Summary Hospital Course Discharge Diagnosis: 1. Prostate cancer 2. Postop anemia 3. Rectal laceration Hospital Course: Patient was admitted on the morning of 12/01/2020 and underwent radical retropubic prostatectomy and bilateral pelvic lymphadenectomy under general and Duramorph spinal anesthesia. The patient had known locally advanced disease and the plane between the anterior rectal wall prostate was obliterated. This may have been due to extra capsular extension or reactive changes status post prostate biopsy. A midline lungs tool rectal laceration was recognized. The patient has had a preoperative mechanical bowel prep. There was no evidence of gross stool contamination. Dr. Callejas was contacted an intraoperative consult requested. A 2 layer closure was then performed, the details of which are in her operative report. Recommendations were for clear liquid diet until return of bowel function and no ancillary antibiotics by Dr. Callejas. The patient had an unremarkable of postoperative course. He then had a bowel movement late in the day yesterday and 3 more subsequently without blood or pain. He continued to ambulate without assistance. He tolerated a general diet subsequently period The morning of 12/05/2020 he was stable for discharge having had an uneventful intended extended postoperative hospitalization for monitoring of return of lower GI function. He and his were instructed on proper catheter care and use. He was provided prescriptions for ciprofloxacin for anticipated catheter removal in about 2 weeks and prescription for oxycodone. Instruction was for him to use oxycodone for breakthrough pain and assume a schedule of Tylenol or ibuprofen over the following days post discharge. Routine post prostatectomy activity, lifting, driving, and hygiene instructions were provided to the patient and his . Pathology was pending at discharge. Status at Discharge Cognitive/behavioral status at discharge: oriented Functional status at discharge: independent ambulation Overall status at discharge: patient is back to baseline Exam Vital Signs (past 8 hours): - 12/05/20 03:00 12/05/20 09:23 Temperature 97.6 F 97.8 F Pulse Rate 99 H 77 Respiratory Rate 16 16 Blood Pressure 136/68 133/60 Pulse Oximetry 96 100 Oxygen Delivery Method Room Air Oxygen Flow Rate 0 Objective Labs Result Diagrams: 12/03/20 14:23 PFSH Medical History Bilateral hydrocele Coronary artery disease Elevated PSA Fragile skin Hearing impaired HLD (hyperlipidemia) HTN (hypertension) Lower urinary tract symptoms (LUTS) Migraines Nodular prostate with lower urinary tract symptoms Prostate cancer Valvular heart disease Surgical History Aortic valve replaced (07/2018) History of appendectomy History of cardiac cath (11/28/20) History of surgery Hx of bilateral cataract extraction 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 Brother Thyroid disease UTI (urinary tract infection) Social History marital status: number of children: 3 household members: spouse Smoking Status: Former smoker alcohol intake: never caffeine: Yes Discharge Plan Discharge Plan Patient Disposition: Home Provider Discharge Comment: Contact Urology Clinic on 12/08/2020 for postop follow-up appointment Discharge orders & Medications Prescriptions: New oxycodone 5 mg tablet 5 mg PO Q4H PRN (Reason: pain) Qty: 20 RF: 0 enoxaparin [Lovenox] 30 mg/0.3 mL syringe 30 mg SUBCUT DAILY Qty: 9 RF: 0 ciprofloxacin HCl 250 mg tablet 250 mg PO BID Qty: 6 RF: 0 Continued ipratropium bromide [Atrovent] 42 mcg (0.06 %) [place],Non-Aerosol 2 spray INTRANASAL TID PRN (Reason: Nasal Congestion) RF: 0 D3-red uqkx-yniqkfzaxwl-mnjb 5,000-200 unit-mg capsule 1 cap PO BID RF: 0 zinc 50 mg tablet 50 mg PO BID RF: 0 amlodipine 5 mg tablet 5 mg PO DAILY RF: 0 Follow up/Referrals: Todd Jaquez DO [Primary Care Provider] - Aylin Berry MD [Physician] - Diet/Activity/Treatments Diet: Diet as Tolerated Activity: 1. No lifting greater than 15 lb or strenuous activity x6 weeks. 2. No driving x2 weeks. 3. You may shower. Do not bathe, hot tub, or swim for 2 weeks. Catheter: 2-way Babb Catheter comment: Use leg bag when out of the home.Use large bag when in home/night. Skin/Wound/Dressing Care Skin care: Leave incision open to air. Report to your healthcare provider any signs of infection, such as:: chills, fever, night sweats, increased pain, unusual drainage and unusual redness Visit Report/Discharge Packet Instructions: How to Care for Your Babb Catheter -- Male, DI for Radical Prostatectomy, DI for Prescription Opioid Use Stand Alone Forms: Surgery Discharge Discharge Data Primary Care Provider: Todd Jaquez Quality VTE Deep Vein Thrombosis/Pulmonary Embolism Present on Admission: No
--- NOTE | 2020-12-05 12:20 | PC.NURSE ---
Assess- Patient is alert and oriented x3. He has a saavedra catheter that is putting our light pink urine. Bladder Scanned for 40cc, his catheter will occasionally leak, and gauze being applied around area. He is independent in his room, has had a bowel movement and ambulating in the room. ML incision cdi, Dr Wu will be in around 1330 to see patient and his to go over some saavedra information. Will do leg bag teaching.
== END 2020-12-05 14:15 | disposition home or self-care (01) | DRG 707 ==
PROVIDERS: Surgery; Admitting Provider Specialist; PCP Family Medicine; Referring Provider Specialist; Visit Provider Specialist
PROC: 0VT00ZZ Resection of Prostate, Open Approach (ICD-10-PCS; principal; 2020-12-01 10:15)
PROC: 0DQP0ZZ Repair Rectum, Open Approach (ICD-10-PCS; CPT 44140; 2020-12-01 10:15)
DX: C61 Malignant neoplasm of prostate (principal); K91.71 Accidental puncture and laceration of a digestive system organ or structure during a digestive system procedure; D62 Acute posthemorrhagic anemia; I25.10 Atherosclerotic heart disease of native coronary artery without angina pectoris; E78.5 Hyperlipidemia, unspecified; I10 Essential (primary) hypertension; Z87.891 Personal history of nicotine dependence; Z95.1 Presence of aortocoronary bypass graft
CPT/HCPCS: 36415; 55845; 85014; 85018; 85025; 86850; 86900; 86901; 87086; 94762; C9290; J0131; J0690; J1100; J2274; J2704; J3010

== ENCOUNTER 2020-12-16 10:08 | Emergency (ER) | payer MEDICARE, OTHER, SELFPAY ==
[2020-12-01 20:38] VITALS: BMI 23.6
[2020-12-16 10:29] VITALS: BP 149/69; PULSE 81; RESP 16; TEMP 36.9; O2SAT 97; BMI 23.6
--- NOTE | 2020-12-16 10:56 | ED_ITS ---
HPI - General Adult General Chief complaint: Abdominal Pain Stated complaint: blood in urine, prostate surgery 12/01/20 Time Seen by Provider: 12/16/20 10:11 Source: patient Mode of arrival: Ambulatory Limitations: no limitations History of Present Illness HPI narrative: Patient is a 75-year-old male who approximately 10 days ago underwent a prostatectomy and also a repair of his rectum. He has had a Babb catheter in place since then. He is here stating that he feels constipated. He is also having blood in his urine. This all started yesterday. He states that he felt like ?something let go ?yesterday and after that point has had blood. No fevers. Was on Lovenox for short period time but is not currently on any antibiotics. Related Data Home Medications Medication Instructions Recorded Confirmed amlodipine 5 mg tablet 5 mg PO DAILY 08/21/20 12/01/20 vitamin D3-red 1 cap PO BID 08/21/20 12/02/20 ntrr-rpoonfbpaeo-tzhswvufvyow 5,000 unit-200 mg capsule zinc 50 mg tablet 50 mg PO BID 08/21/20 12/02/20 ipratropium bromide 2 spray INTRANASAL TID PRN 11/28/20 12/01/20 Previous Rx's Medication Instructions Recorded ciprofloxacin HCl 250 mg PO BID #6 tab 12/05/20 enoxaparin [Lovenox] 30 mg SUBCUT DAILY #9 ml 12/05/20 oxycodone 5 mg PO Q4H PRN #20 tab 12/05/20 sulfamethoxazole-trimethoprim 1 tab PO BID 3 Days #6 tab 12/16/20 [Bactrim DS] Allergies Allergy/AdvReac Type Severity Reaction Status Date / Time gluten AdvReac Severe GI Upset, Verified 11/28/20 12:15 autoimmune reaction lactase [From Dairy Aid] AdvReac Mild Congested Verified 12/01/20 09:50 Sugars, Metabolically Active AdvReac Mild ITCHING Verified 12/01/20 09:50 Review of Systems Constitutional Constitutional: Denies fever(s) Cardiovascular Cardiovascular: Reports system reviewed and no additional complaints, except as documented Respiratory Respiratory: Reports system reviewed and no additional complaints, except as documented Gastrointestinal Gastrointestinal: Denies bloating, Reports constipation, Denies nausea and Denies vomiting Genitourinary Comments: Blood in urine Musculoskeletal Musculoskeletal: Reports system reviewed and no additional complaints, except as documented Integumentary/Breasts Skin/Breast: Denies rash Psychiatric Psychiatric: Reports system reviewed and no additional complaints, except as documented Patient History Medical History Bilateral hydrocele Coronary artery disease Elevated PSA Fragile skin Hearing impaired HLD (hyperlipidemia) HTN (hypertension) Lower urinary tract symptoms (LUTS) Migraines Nodular prostate with lower urinary tract symptoms Prostate cancer Valvular heart disease Surgical History Aortic valve replaced (07/2018) History of appendectomy History of cardiac cath (11/28/20) History of surgery Hx of bilateral cataract extraction 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 Brother Thyroid disease UTI (urinary tract infection) Social History marital status: number of children: 3 household members: spouse Smoking Status: Former smoker alcohol intake: never caffeine: Yes Smoking Status: Former smoker Substance Use Type: does not use Exam Initial Vital Signs Initial Vital Signs: Vital Signs Temperature 98.4 F 12/16/20 10:29 Pulse Rate 81 12/16/20 10:29 Respiratory Rate 16 12/16/20 10:29 Blood Pressure 149/69 H 12/16/20 10:29 Pulse Oximetry 97 12/16/20 10:29 Const General: cooperative and comfortable Limitations: mental status not altered HENKS Head: normal to inspection and normocephalic Resp Effort & Inspection: normal respiratory effort Cardio Rate: regular rate GI Inspection: non-distended Palpation: soft and No tender Other: Babb catheter in place Skin Lesions: no lesions Rashes: no rashes Neuro General: patient alert and patient awake Extrem General: normal to inspection and capillary refill normal Psych Appearance: grossly normal and well kempt Course Orders Ordered: ED Orders 12/16/20 11:55 Complete Blood Count AUTO DIFF Stat Comprehensive Metabolic Panel Stat Lipase Stat 12/16/20 12:30 CT abdomen pelvis w con Stat 12/16/20 13:03 Urinalysis and Microscopic Stat Urine Culture Stat Discontinued Medications Sodium Chloride (Normal Saline 0.9%) 1,000 mls @ 1,000 mls/hr IV BOLUS ONE Stop: 12/16/20 12:18 Last Infusion: 12/16/20 14:26 Dose: 0 mls/hr Documented by: Admin: 12/16/20 13:06 Dose: 1,000 mls/hr Documented by: ALBIN Vital Signs Vital signs: Vital Signs - 8 hr 12/16/20 10:29 Temperature 98.4 F Pulse Rate 81 Respiratory Rate 16 Blood Pressure 149/69 H Pulse Oximetry 97 Medical Decision Making Lab Data Lab results reviewed: Yes I reviewed the patient's lab results. Result diagrams: 12/16/20 11:55 12/16/20 11:55 Labs: Lab Results 12/16/20 12/16/20 12/16/20 Range/Units 11:55 11:55 13:03 WBC 7.0 (4.5-11.0) X10^3/uL RBC 3.07 L (4.5-5.9) X10^6/uL Hgb 10.1 L (13.5-17.5) g/dL Hct 29.0 L (41-53) % MCV 94.6 (80-100) fL MCH 32.9 (26-34) PG MCHC 34.7 (30-36) % RDW 13.0 (11.6-14.8) % Plt Count 299 (150-400) X10^3/uL Neut % (Auto) 78.6 H (50-75) % Lymph % (Auto) 11.4 L (25-40) % Peach % (Auto) 8.9 (3-14) % Eos % (Auto) 0.5 L (2-4) % Baso % (Auto) 0.6 (0-2) % Neut # (Auto) 5500 (6210-8484) /uL Lymph # (Auto) 800 L (5174-9685) /uL Peach # (Auto) 600 (0-900) /uL Eos # (Auto) 0 (0-450) /uL Baso # (Auto) 0 (0-100) /uL Sodium 136 L (137-145) mmol/L Potassium 4.0 (3.4-5.1) mmol/L Chloride 105 (98-107) mmol/L Carbon Dioxide 24 (22-32) mmol/L BUN 18 (9-20) mg/dL Creatinine 0.90 (0.66-1.25) mg/dL Estimated GFR > 60.0 (>60) mL/min BUN/Creatinine Ratio 20.0 (6-22) Glucose 102 (80-110) mg/dL Calcium 9.4 (8.4-10.2) mg/dL Total Bilirubin 0.4 (0.2-1.3) mg/dL AST 24 (17-59) IU/L ALT 18 (<50) IU/L Alkaline Phosphatase 88 (38-126) U/L Total Protein 6.8 (6.3-8.2) g/dL Albumin 3.7 (3.5-5.0) g/dL Globulin 3.1 (1.7-4.1) g/dL Albumin/Globulin Ratio 1.2 (1.0-2.8) Lipase 29 (23-300) U/L Urine Color Red Urine Appearance Turbid Urine pH TNP Ur Specific Rake TNP Urine Protein TNP Urine Glucose (UA) TNP Urine Ketones TNP Urine Occult Blood TNP Urine Nitrate TNP Urine Bilirubin TNP Urine Urobilinogen TNP Ur Leukocyte Esterase TNP Urine RBC >100/hpf H (0-5/HPF) Urine WBC 30-100/hpf H (0-5/HPF) Urine Bacteria Few (2-10) H (None) Ur Culture Indicated? Specimen cultured Imaging Data CT scan - abdomen/pelvis: Radiologist's Impression: [address] [id number] Scan ReportSigned Patient: Alex Mancuso PMR#: [id number]: 4Acct:[id number]/Sex: 75 / MDate of Service: 12/16/20Loc: EDAccession Number: [id number] Procedure: CT abdomen pelvis w con Ordering Provider: Parker Melvin D.O. PROCEDURE: CT ABDOMEN PELVIS W CON INDICATIONS: Recent prostatectomy, felt a lower abdominal rip TECHNIQUE: After the administration of intravenous contrast, 5 mm thick sections acquired from the diaphragm to the symphysis. 5 mm coronal and sagittal reformats were acquired. For radiation dose reduction, the following was used: automated exposure control, adjustment of mA and/or kV according to patient size. COMPARISON: Located Within [facility], CT, CT CHEST ABD PEL W CON, 10/16/2020, 10:20. FINDINGS: Image quality: Excellent. ABDOMEN: Lung bases: Scattered calcified pleural plaques are seen in bilateral lower l rigoberto arshad and diaphragm unchanged from previous study. No focal infiltrate, pleural effusion or pneumothorax. Heart size is normal. Solid organs: Liver is normal in size and enhancement. There is mild hepatic steatosis. Gallbladder is within normal limits. Biliary system is non dilated. Pancreas enhances normally. Spleen is normal in size . Calcified granuloma in superior portion of spleen is again seen and unchanged. No adrenal nodules. Kidneys demonstrate normal size and enhancement, without hydronephrosis. Bilateral renal cysts are again seen unchanged from prior study. Peritoneum and bowel: Bowel loops demonstrate normal wall thickness and caliber. No free fluid or air. Mild fecal stasis in the colon is seen. No peritoneal abscess collection. Nodes and vessels: No retroperitoneal or mesenteric adenopathy by size criteria. Aorta and inferior vena cava are normal in size. Moderate atherosclerotic calcifications in abdominal aorta is seen. Miscellaneous: No ventral hernias. PELVIS: Genitourinary: Babb catheter is seen in a decompressed urinary bladder with suggestion of mild diffuse bladder wall thickening. Patient is status post interval pro statectomy with a lobulated fluid collection in right prostate bed and measures up to 3 x 3.3 cm in size series 3, image 68. No peripheral enhancement is noted. Miscellaneous: No inguinal hernias or adenopathy. Bones: No suspicious bony lesions. No vertebral body compression fractures. Mild degenerative disc disease in lumbar spine is again seen. IMPRESSION: 1. Interval prostatectomy with postsurgical changes and likely postsurgical seroma in right prostate bed. No discrete abscess collection. Babb catheter in a decompressed urinary bladder with suggestion of diffuse bladder wall thickening. 2. No peritoneal free fluid or free air. No peritoneal abscess collection. Mild constipation. 3. Hepatic steatosis. 4. 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 Dictated by: Gregorio Saravia M.D. on 12/16/2020 at 13:23 Approved by: Gregorio Saravia M.D. on 12/16/2020 at 13:36 MDM Narrative Medical decision making narrative: Patient did have keith blood coming from the urinary catheter. It was flushed and did drain freely afterwards. The rest of his exam is fairly unremarkable. Labs are unremarkable. Urinalysis shows white cells and bacteria along with red cells. Was cultured. CT scan does show the Babb catheter in the bladder. There is a small area which appears to be a seroma on the right side where the prostate was once located. According to the CT scan this is less likely an abscess. The bleeding was coming from the Babb catheter which means that it would be within the bladder. Unsure how bleeding outside of the bladder would cause the hematuria. I did discuss the case with Dr. Guajardo with urology was the patient's operative surgeon. Plan will be is to start him on antibiotics. Send a urine culture which was done. Give him return precautions with regard to obstruction because of the hematuria. We also discussed his concerns about constipation. We did discuss that he needs to take it easy for the next couple days. He will contact the urology office for a follow-up. He was given strict return precautions. He expressed understanding and agreement. Discharge Plan Departure Patient Disposition: Home Clinical Impression: Hematuria, Acute UTI Instructions: How to Care for Your Babb Catheter -- Male, DI for Urinary Tract Infection (UTI) Activity Restrictions/Additional Instructions: I did discuss her case with your urologist. Recommend that you follow the instructions that we discussed prior to your discharge. Contact your urologist office tomorrow for a follow-up. Return to the emergency department for any new or worsening symptoms. Prescriptions: New sulfamethoxazole-trimethoprim [Bactrim DS] 800-160 mg tablet 1 tab PO BID 3 Days Qty: 6 RF: 0 No Action ipratropium bromide 42 mcg (0.06 %) [place],Non-Aerosol 2 spray INTRANASAL TID PRN (Reason: Nasal Congestion) RF: 0 ciprofloxacin HCl 250 mg tablet 250 mg PO BID Qty: 6 RF: 0 oxycodone 5 mg tablet 5 mg PO Q4H PRN (Reason: pain) Qty: 20 RF: 0 enoxaparin [Lovenox] 30 mg/0.3 mL syringe 30 mg SUBCUT DAILY Qty: 9 RF: 0 D3-red wqrl-ybejyskxxbl-cvrb 5,000-200 unit-mg capsule 1 cap PO BID RF: 0 zinc 50 mg tablet 50 mg PO BID RF: 0 amlodipine 5 mg tablet 5 mg PO DAILY RF: 0 Referrals: Todd Jaquez DO [Primary Care Provider] -
--- NOTE | 2020-12-16 12:04 | PC.NURSE ---
catheter flushed with no effort. instilled and returned 500ml sterile water. return is blood tinged.
[2020-12-16 12:06] LABS: Add Manual Diff / Slide Review NO; Basophils Absolute Auto 0 /uL (0-100); Basophils Percent Auto 0.6 % (0-2); Eosinophils Absolute Auto 0 /uL (0-450); Eosinophils Percent Auto 0.5 % (2-4); Hemoglobin 10.1 g/dL (13.5-17.5); Lymphocytes Absolute Auto 800 /uL (1100-4500); Lymphocytes Percent Auto 11.4 % (25-40); Mean Corpuscular HGB Conc 34.7 % (30-36); Mean Corpuscular Hemoglobin 32.9 PG (26-34); Mean Corpuscular Volume 94.6 fL (80-100); Monocytes Absolute Auto 600 /uL (0-900); Monocytes Percent Auto 8.9 % (3-14); Neutrophils Absolute Auto 5500 /uL (1500-7000); Neutrophils Percent Auto 78.6 % (50-75); Platelet Count 299 X10^3/uL (150-400); Red Blood Cell Count 3.07 X10^6/uL (4.5-5.9)
[2020-12-16 12:17] LABS: Alanine Aminotransferase 18 IU/L (<50); Albumin 3.7 g/dL (3.5-5.0); Albumin Globulin Ratio 1.2 (1.0-2.8); Alkaline Phosphatase 88 U/L (38-126); Aspartate Aminotransferase 24 IU/L (17-59); Bilirubin Total 0.4 mg/dL (0.2-1.3); Blood Urea Nitrogen 18 mg/dL (9-20); Calcium 9.4 mg/dL (8.4-10.2); Carbon Dioxide 24 mmol/L (22-32); Chloride 105 mmol/L (98-107); Estimated Glomerular Filt Rate > 60.0 mL/min (>60); Globulin 3.1 g/dL (1.7-4.1); Glucose 102 mg/dL (80-110); HEMOLYSIS < 15 (0-50); Lipase 29 U/L (23-300); Sodium 136 mmol/L (137-145); Total Protein 6.8 g/dL (6.3-8.2)
--- NOTE | 2020-12-16 12:30 | DI.CT.S_ITS ---
PROCEDURE: CT ABDOMEN PELVIS W CON INDICATIONS: Recent prostatectomy, felt a lower abdominal rip TECHNIQUE: After the administration of intravenous contrast, 5 mm thick sections acquired from the diaphragm to the symphysis. 5 mm coronal and sagittal reformats were acquired. For radiation dose reduction, the following was used: automated exposure control, adjustment of mA and/or kV according to patient size. COMPARISON: [facility], CT, CT CHEST ABD PEL W CON, 10/16/2020, 10:20. FINDINGS: Image quality: Excellent. ABDOMEN: Lung bases: Scattered calcified pleural plaques are seen in bilateral lower lung arshad and diaphragm unchanged from previous study. No focal infiltrate, pleural effusion or pneumothorax. Heart size is normal. Solid organs: Liver is normal in size and enhancement. There is mild hepatic steatosis. Gallbladder is within normal limits. Biliary system is non dilated. Pancreas enhances normally. Spleen is normal in size . Calcified granuloma in superior portion of spleen is again seen and unchanged. No adrenal nodules. Kidneys demonstrate normal size and enhancement, without hydronephrosis. Bilateral renal cysts are again seen unchanged from prior study. Peritoneum and bowel: Bowel loops demonstrate normal wall thickness and caliber. No free fluid or air. Mild fecal stasis in the colon is seen. No peritoneal abscess collection. Nodes and vessels: No retroperitoneal or mesenteric adenopathy by size criteria. Aorta and inferior vena cava are normal in size. Moderate atherosclerotic calcifications in abdominal aorta is seen. Miscellaneous: No ventral hernias. PELVIS: Genitourinary: Babb catheter is seen in a decompressed urinary bladder with suggestion of mild diffuse bladder wall thickening. Patient is status post interval prostatectomy with a lobulated fluid collection in right prostate bed and measures up to 3 x 3.3 cm in size series 3, image 68. No peripheral enhancement is noted. Miscellaneous: No inguinal hernias or adenopathy. Bones: No suspicious bony lesions. No vertebral body compression fractures. Mild degenerative disc disease in lumbar spine is again seen. IMPRESSION: 1. Interval prostatectomy with postsurgical changes and likely postsurgical seroma in right prostate bed. No discrete abscess collection. Babb catheter in a decompressed urinary bladder with suggestion of diffuse bladder wall thickening. 2. No peritoneal free fluid or free air. No peritoneal abscess collection. Mild constipation. 3. Hepatic steatosis. 4. 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 Dictated by: Gregorio Saravia M.D. on 12/16/2020 at 13:23 Approved by: Gregorio Saarvia M.D. on 12/16/2020 at 13:36
[2020-12-16] MEDS: SODIUM CHLORIDE 0.9% 1,000 ML 1000 ML IV (13:06)
[2020-12-16 13:14] LABS: Appearance Urine UA Turbid
[2020-12-16 13:16] LABS: Color Urine UA RED
[2020-12-16 13:19] LABS: Bacteria Urine Few (2-10); RBC Urine >100/HPF (0-5/HPF); WBC Urine 30-100/HPF (0-5/HPF)
[2020-12-16 13:20] LABS: Culture Indicated Urine Specimen Cultured
[2020-12-16 15:02] VITALS: BP 144/82; PULSE 74; RESP 15; O2SAT 99
== END 2020-12-16 15:03 | disposition home or self-care (01) ==
PROVIDERS: Emergency Provider Emergency Medicine; PCP Family Medicine
DX: R31.9 Hematuria, unspecified (principal); N39.0 Urinary tract infection, site not specified; T85.9XXA Unspecified complication of internal prosthetic device, implant and graft, initial encounter
CPT/HCPCS: 36415; 51798; 74177; 80053; 81001; 83690; 85025; 87077; 87086; 87186; 96360; 99284; Q9967

== ENCOUNTER → 2021-01-20 09:19 | Outpatient (CLI) | payer MEDICARE, OTHER, SELFPAY ==
[2021-01-07 16:31] VITALS: BMI 23.6
--- NOTE | 2021-01-20 09:23 | DI.NM.S_ITS ---
PROCEDURE: MS BONE SCAN WHOLE BODY RADIOPHARMACEUTICAL: 20 0.0 mCi Tc-99m MDP IV. INDICATIONS: Prostate cancer TECHNIQUE: Delayed whole-body scintigrams were obtained approximately 3-4 hours after intravenous injection of radiotracer. Anterior and posterior views were acquired from vertex to feet. COMPARISON: . [facility], [place], [place] BONE SCAN WHOLE BODY, 10/16/2020, 12:32[facility], CT, CT CHEST ABD PEL W CON, 01/20/2021, 10:29. FINDINGS: There are foci of increased uptake in the posterior aspect of the right 9th rib and posterior lateral aspect of the right 10th rib, correlating with a sclerotic lesions, consistent with metastasis. There is increased uptake in the left iliac bone suspicious for metastasis. No lesions are identified in skull, sternum, clavicles, scapulae and visualized shafts of the long bones. There is low level increased uptake in cervical, thoracic and lumbar spine with distribution indistinguishable from degenerative disc and facet disease; early metastasis to spine could be obscured by degenerative changes. There are foci of increased periarticular activity involving shoulders, sternoclavicular joints, wrists, hands, hips, SI joints, ankles and feet, compatible with degenerative/arthritic changes. IMPRESSION: 1. Stable foci of increased uptake involving the right 9th and 10th ribs are consistent with metastases. 2. Suspect lesion involving the left iliac bone adjacent to the sacroiliac joint. 3. Degenerative changes as described. Dictated by: Bubba Louise M.D. on 01/20/2021 at 16:03 Approved by: Bubba Louise M.D. on 01/20/2021 at 16:13
--- NOTE | 2021-01-20 09:23 | DI.CT.S_ITS ---
PROCEDURE: CT CHEST ABD PEL W CON INDICATIONS: Prostate CA TECHNIQUE: After the administration of oral and intravenous contrast, axial sections acquired from the supraclavicular neck to the pubic symphysis. Coronal and sagittal reformats were performed. For radiation dose reduction, the following was used: automated exposure control, adjustment of mA and/or kV according to patient size. COMPARISON: [facility], CT, CT ABDOMEN PELVIS W CON, 12/16/2020, 12:37. [facility], NM, NM BONE SCAN WHOLE BODY, 10/16/2020, 12:32. [facility], CT, CT CHEST ABD PEL W CON, 10/16/2020, 10:20. FINDINGS: Image quality: Excellent. CHEST: Lower Neck: No enlarged lymph nodes. Thyroid: Left thyroid nodule measuring 1.1 cm, not significantly changed. Axillae: No enlarged lymph nodes. Chest Wall: Unremarkable. Lungs and Airways: No consolidation or suspicious nodules. Pleura: Multiple calcified pleural plaques bilaterally, unchanged. No pneumothorax or pleural effusions. Heart: Post median sternotomy and aortic valve replacement. The heart size is within normal limits. Coronary artery calcifications. No pericardial effusion. Thoracic Vessels: The aorta and pulmonary arteries demonstrate normal size. Mediastinum and Nydia: No enlarged lymph nodes. Esophagus: No wall thickening. No hiatal hernia. ABDOMEN: Liver: Unremarkable. Gallbladder: Unremarkable. Biliary ducts: Unremarkable. Pancreas: Unremarkable. Spleen: No splenomegaly. Calcified granuloma. Adrenal Glands: Unremarkable. Kidneys and Ureters: No hydronephrosis. Small simple appearing left renal cysts. Stomach and Bowel: No small bowel obstruction. Prominent stool in the right colon. The appendix is not seen. Peritoneum: No abnormal intraperitoneal fluid. No free air. Ventral Wall: No hernia. Abdominal Nodes: No enlarged nodes seen. Small left pelvic sidewall and left iliac nodes, (2/103, 110). Vessels: Aorta and inferior vena cava are normal in size. Circumferential calcified atherosclerotic plaque. PELVIS: Pelvic Organs: Prostate is surgically absent. Resolved prominence of the right seminal vesicle. Bladder: Within normal limits. Scar anterior to the bladder. Pelvic Nodes: No enlarged lymph nodes. Miscellaneous: No inguinal hernias are seen. Bones: Several sclerotic foci within the ribs bilaterally. Several of these foci are more conspicuous. For example: -Right lateral 4th rib, (2/26). -Right lateral 7th rib, (2/43). -Left anterior 2nd rib, (2/19). Several sclerotic foci within the vertebral bodies. Some of these are more conspicuous and may be slightly increased in size compared to 10/16/2020. IMPRESSION: 1. Post prostatectomy. Resolved right seroma versus prominent seminal vesicle. 2. Multiple osseous sclerotic foci. Some of which may be slightly increased in size. The suspect osseous metastatic disease. -Recommend correlation with scheduled same day nuclear medicine bone scan. 3. Small left pelvic sidewall lymph nodes are similar to the prior CTs. This may represent metastatic disease. 4. 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 Dictated by: Christian Green M.D. on 01/20/2021 at 11:17 Approved by: Christian Green M.D. on 01/20/2021 at 11:47
== END ==
PROVIDERS: Family Provider Family Medicine; PCP Family Medicine; Referring Provider Specialist; Visit Provider Specialist
DX: C61 Malignant neoplasm of prostate (principal); M89.9 Disorder of bone, unspecified; J92.9 Pleural plaque without asbestos; R59.0 Localized enlarged lymph nodes; N40.3 Nodular prostate with lower urinary tract symptoms; N43.3 Hydrocele, unspecified; R39.9 Unspecified symptoms and signs involving the genitourinary system; R97.20 Elevated prostate specific antigen [PSA]
CPT/HCPCS: 71260; 74177; 78306; A9503

== ENCOUNTER → 2021-02-10 08:52 | Outpatient (CLI) | payer MEDICARE, OTHER, SELFPAY ==
[2021-01-07 16:31] VITALS: BMI 23.6
--- NOTE | 2021-02-10 08:56 | DI.MRI.S_ITS ---
PROCEDURE: MR HEAD/BRAIN WO/W CON INDICATIONS: Dizziness and giddiness TECHNIQUE: Noncontrast axial T1 spin echo, axial T2 fast spin echo, sagittal and axial FLAIR, coronal T2 fast spin echo, axial gradient echo, axial diffusion and ADC through the brain. After the administration of contrast, axial and coronal 3D VIBE or T1 spin echo with fat saturation through the brain. COMPARISON: None. FINDINGS: Image quality: Excellent. CSF Spaces: Basal cisterns are patent. No extra-axial fluid collections. Ventricles are normal in size and shape. Brain: No midline shift. No intracranial bleeds or masses. No abnormal intracranial enhancement. The brainstem appears normal. Diffusion-weighted images demonstrate no acute ischemic insults. There is mild, diffuse cerebral volume loss. There are minimal periventricular and subcortical white matter chronic microvascular ischemic changes. Normal intravascular flow voids are present. Dural sinuses demonstrate normal postcontrast enhancement. Skull and face: Calvarial marrow is normal in signal. Orbits appear normal. Susceptibility artifact noted in the right parietal scalp compatible with presence of metal; please correlate with clinical findings. Sinuses: Sinuses and mastoids appear clear. IMPRESSION: 1. No acute intracranial disease process. 2. No abnormal intracranial mass or suspicious postcontrast enhancement. 3. No areas of acute or chronic infarction. 4. Mild, diffuse cerebral volume loss. 5. Minimal periventricular and subcortical white matter chronic microvascular ischemic changes. Dictated by: Sandra Post MD, PhD on 02/10/2021 at 10:31 Approved by: Sandra Post MD, PhD on 02/10/2021 at 11:03
== END ==
PROVIDERS: Family Provider Family Medicine; PCP Family Medicine; Referring Provider Otolaryngology; Visit Provider Otolaryngology
DX: C61 Malignant neoplasm of prostate (principal); R42 Dizziness and giddiness; R41.3 Other amnesia
CPT/HCPCS: 70553; A9579

== ENCOUNTER → 2021-02-13 07:55 | Outpatient (CLI) | payer MEDICARE, OTHER, SELFPAY ==
[2021-01-07 16:31] VITALS: BMI 23.6
[2021-02-13 08:33] LABS: COVID19 -Nasal RAPID Negative (Negative)
== END ==
PROVIDERS: Family Provider Family Medicine; PCP Family Medicine; Visit Provider Specialist
DX: Z20.822 Contact with and (suspected) exposure to COVID-19 (principal)
CPT/HCPCS: 87635; C9803

== ENCOUNTER 2021-02-16 12:37 | Day surgery (SDC) | payer MEDICARE, OTHER, SELFPAY ==
[2021-01-07 16:31] VITALS: BMI 23.6
[2021-02-16] VITALS (9 sets, daily range): BP systolic 120–138; BP diastolic 60–78; PULSE 61–83; RESP 12–18; TEMP 36.3–37; O2SAT 97–100; BMI 22.3
--- NOTE | 2021-02-16 | PATH_ITS ---
[facility] Accession Number: [id number] . 01 Material submitted: . PART A: testis - RIGHT TESTICLE PART B: testis - LEFT TESTICLE . 02 Diagnosis: A-B. Right, Left Testes, Bilateral Orchiectomies: Bilateral testes with markedly diminished spermatogenesis, suggestive of antihormonal therapy. No evidence of neoplasm. [facility] 02/19/2021 1535 Local . 02 Comment: As part of routine quality assurance group leader, Dr. Parrish has reviewed customer retention representative slides from this case and agrees with the diagnosis above. . 02 Electronically signed: . Raffaele Quintero MD, PhD, Pathologist NPI- [id number] . 01 Gross description: . A. Received in formalin, labeled right testicle consists of a 157-gram, 9.5 x 8.0 x 5.5 cm cystic testicle with a johnson-pink external surface with fibrinous adhesions. Sectioning reveals a johnson-pink, smooth, inner lining. The cyst contains a yellow-tinged serous fluid. The johnson-pink testicular parenchyma measures 4.0 x 3.0 x 2.0 cm, and there is a 2.0 x 1.0 x 0.8 cm epididymis. Sales Account Executive sections are submitted. . A1: Margin (blue, en face). A2: Sales Account Executive cysts. A3-A4: Testicle and epididymis. . B. Received in formalin, labeled left testicle consists of a 21-gram, 3.5 x 2.5 x 2.0 cm testicle with a 4.2 x 0.8 x 0.6 cm epididymis and a 1.5 cm in length by 2.0 cm in diameter attached spermatic cord. The external surface is johnson-pink and smooth. The specimen is inked blue and sectioned to reveal johnson-pink, spongy cut surfaces. No masses or lesions are identified. Sales Account Executive sections are submitted. . B1: Spermatic cord margin (blue, en face). B2--B3: Testicle in relation to epididymis and rete testis. ([id number]) /MRV 02/17/2021 1118 Local . 02 Pathologist provided ICD-10: Z85.46 . 02 CPT . 181129, [id number] Performed at: 01 [facility] [address] [address], [place], [place] [id number] MD Willis Villeda MD Phone: [phone] Performed at: 02 [facility] [address] [place], [place] [id number] MD Karla Gonzalez MD Phone: [phone]
--- NOTE | 2021-02-16 13:36 | PM.PREOP ---
Pre-operative Note Interval Note History & Physical reviewed/Exam performed by Physician: Yes Changes to H&P: No
[2021-02-16] MEDS: LACTATED RINGERS 1,000 ML 42 ML IV ×2 (13:59→14:39)
[2021-02-16] MEDS: CEFAZOLIN 1 GM VIAL 2 GM IV (14:20)
--- NOTE | 2021-02-16 14:57 | SUR.OPER ---
Lithotomy on padded OR bed, head on pillow, arms secured on padded arm boards at <90 degrees abduction. Legs secured in padded yellow fins stirrups.
[2021-02-16] MEDS: BUPIVACAINE LIPOSOME 266 MG/20 ML VIAL INJ (15:17)
[2021-02-16] MEDS: BACITRACIN OINT 0.9 GM PCKT 1 APPLIC TOP (15:18)
[2021-02-16] MEDS: BUPIVACAINE 0.25% W/ EPI 30 ML VIAL INJ (15:19)
--- NOTE | 2021-02-16 15:53 | P.OP_ITS ---
Operative Date/Time/Diagnoses Date of procedure: 02/16/21 Time of procedure: 15:53 Pre-op diagnosis: Metastatic prostate cancer Post-op diagnosis: same Procedure & Clinicians Procedure: 1. Bilateral scrotal orchiectomy Same procedure as scheduled: Yes Indications: 1. Metastatic prostate cancer. 2. Advancing cognitive decline. Surgeon: Aylin Berry Click Yes if Unassisted: Yes Anesthesia Type: General and Local (1.33% Exparel.) Operative Notes Findings: 1. Moderate size right hydrocele. 2. Small left hydrocele with inter scrotal liam. Closure Type: primary Specimen(s): other (Right and left testis) Estimated Blood Loss (mL): 2 Procedure in detail: The patient was positioned in supine was administered general anesthesia. He was then repositioned semi lithotomy and the lower abdomen, genitalia, groin, and perineum then prepped and draped in sterile fashion. A solution of 0.5% Marcaine with epinephrine was then used to infiltrate the midline scrotal raphae skin and subcutaneous dartos fascia. A midline incision was made in the midline scrotal raphae. Lung cautery dissection was then used to divide tissue plane down level of the right tunica vaginalis. The structure was then cleared of surrounding dartos fascia was delivered from the right hemiscrotum. A hemostatic clamp was then applied across the cord structures and engaged for crush hemostasis. A suture ligature of 0 Tycron was then placed proximally. A 2nd free tie of 0 Tycron was then a pplied just distal to this. The testis then attached epididymis were then transected distal to the ligatures and submitted to pathology for routine gross and microscopic examination. The same steps and maneuvers were performed on the left side to complete bilateral scrotal orchiectomy. Exparel was then used to infiltrate the skin and subcutaneous tissue of the midline incision. The dartos fascia was then reapproximated using a running 2-0 Monocryl. The skin was reapproximated using running horizontal mattress of 4-0 Monocryl. Antibiotic ointment was applied to the incision line. Dry sterile fluffs were then applied to the scrotum in the patient was fitted with the athletic supporter. He was then awakened transferred to [facility] and transferred to recovery in stable condition. Complications: none Post-operative Condition: stable Disposition: PACU Plan for aftercare: Discharge home
[2021-02-16] MEDS: OXYCODONE IR 5 MG TABLET PO (16:05)
--- NOTE | 2021-02-16 17:17 | SUR.PHASEII ---
1701 Phase II care by Jimmy Babin RN. HOWARD Garcia transported the patient to the car (only). Nery said that she would enter the VS taken prior to discharge.
== END 2021-02-16 17:01 | disposition home or self-care (01) ==
PROVIDERS: Family Provider Family Medicine; PCP Family Medicine; Referring Provider Specialist; Visit Provider Specialist
PROC: (CPT 54520; principal; 2021-02-16 13:15)
DX: C61 Malignant neoplasm of prostate (principal); C79.51 Secondary malignant neoplasm of bone; N43.3 Hydrocele, unspecified; I25.10 Atherosclerotic heart disease of native coronary artery without angina pectoris; E78.5 Hyperlipidemia, unspecified; I10 Essential (primary) hypertension
CPT/HCPCS: 54520; C9290; J0690; J1100; J2405; J2704; J3010

== ENCOUNTER → 2021-02-26 14:47 | Outpatient (CLI) | payer MEDICARE, OTHER, SELFPAY ==
[2021-02-17 11:41] VITALS: BMI 23.6
== END ==
PROVIDERS: Family Provider Family Medicine; PCP Family Medicine; Referring Provider Specialist; Visit Provider Specialist
DX: C61 Malignant neoplasm of prostate (principal); M85.851 Other specified disorders of bone density and structure, right thigh; R39.9 Unspecified symptoms and signs involving the genitourinary system; R29.890 Loss of height
CPT/HCPCS: 77080

== ENCOUNTER → 2022-03-04 11:33 | Outpatient (CLI) | payer MEDICARE, OTHER, SELFPAY ==
[2021-02-17 11:41] VITALS: BMI 23.6
--- NOTE | 2022-03-04 11:36 | DI.US.S_ITS ---
PROCEDURE: US PERIPH VENOUS LOW EXTREM RT INDICATIONS: right leg larger than left TECHNIQUE: Real-time imaging, as well as color and pulse Doppler interrogation, were performed of the lower extremity deep veins from the inguinal ligament to the popliteal fossa. COMPARISON: None. FINDINGS: The common femoral, femoral and popliteal veins are normally compressible, and free of intraluminal thrombus. Color and pulse Doppler demonstrate normal phasic intraluminal flow. There is normal augmentation response to distal compression maneuver. IMPRESSION: No evidence of DVT in visualized right lower extremity veins. Dictated by: Gregorio Saravia M.D. on 03/04/2022 at 13:58 Approved by: Gregorio Saravia M.D. on 03/04/2022 at 13:59
== END ==
PROVIDERS: Family Provider Family Medicine; PCP Family Medicine; Referring Provider Nurse Practitioner; Visit Provider Nurse Practitioner
DX: M79.661 Pain in right lower leg (principal)
CPT/HCPCS: 93971

== ENCOUNTER → 2022-11-26 13:12 | Outpatient (CLI) | payer MEDICARE, OTHER, SELFPAY ==
[2021-02-17 11:41] VITALS: BMI 23.6
--- NOTE | 2022-11-30 07:31 | PM.PFT.1 ---
Pulmonary Function Test Referral & Results Date Patient Seen: 11/26/22 Results: The spirometry demonstrates an FVC of 3.64 L which is 82% of predicted. The FEV1 was measured at 2.61 L which is 82% of predicted. The FEV1/FVC ratio was 72 which is 99% of predicted. Following the administration of bronchodilator there was no appreciable change. Lung volumes show an SVC of 3.60 L which is 76% of predicted. The diffusing capacity was measured at 27.71 which is 79% of predicted. The maximum voluntary ventilation was normal Interpretation: This study demonstrates possibly very mild obstructive lung disease based on minimal reduction FEV1. FEV1/FVC ratio is however preserved and there is no evidence of benefit following bronchodilator administration There is a mild reduction in lung volumes suggesting the presence of mild restrictive lung disease which probably explains the abnormality in the FEV1 above There is also mild reduction diffusing capacity suggesting mild disease at the capillary alveolar level Clinical correlation suggested
== END ==
PROVIDERS: Family Provider Family Medicine; Referring Provider Internal Medicine Pulmonary Disease; Visit Provider Internal Medicine Pulmonary Disease
DX: R06.09 Other forms of dyspnea (principal); Z87.891 Personal history of nicotine dependence; J98.8 Other specified respiratory disorders
CPT/HCPCS: 94060; 94726; 94729

== ENCOUNTER → 2022-12-31 10:11 | Outpatient (CLI) | payer MEDICARE, OTHER, SELFPAY ==
[2021-02-17 11:41] VITALS: BMI 23.6
--- NOTE | 2022-12-31 10:53 | DI.DEXA.S_ITS ---
Bone Density Report Name: BRAYAN VASQUEZ Age: 77 Sex: Male Ethnicity: White Date of : 1945 Indication: osteopenia; Referring Provider: RAFAL ELIZALDE Study: Bone densitometry was performed. Exam Date: December 31, 2022 Accession number: [id number] Bone Density: Region BMD T-score Z-score Classification AP Spine(L1-L4) 0.816 -2.1 -1.4 Osteopenia Femoral Neck (Left) 0.602 -2.2 -0.9 Osteopenia Total Hip (Left) 0.702 -2.0 -1.2 Osteopenia Femoral Neck (Right) 0.640 -1.9 -0.6 Osteopenia Total Hip (Right) 0.663 -2.3 -1.4 Osteopenia Total Hip Mean 0.682 -2.2 -1.3 Osteopenia World Health Organization criteria for BMD impression classify patients as: Normal (T-score at or above -1.0), Osteopenia (T-score between -1.0 and -2.5), or Osteoporosis (T-score at or below -2.5). 10-year Fracture Risk(1): Major Osteoporotic Fracture 10% Hip Fracture 4.4% Reported Risk Factors: [place] (), Neck BMD=0.602, BMI=23.1 (1) FRAX(R) Version 3.08. Fracture probability calculated for an untreated patient. Fracture probability may be lower if the patient has received treatment. Previous Exams: -- Region Exam Age BMD T-score BMD Change BMD Change Date g/cm2 vs Baseline vs Previous -- AP Spine (L1-L4) 12/31/2022 77 0.816 -2.1 -0.072 (-8.1%)# -0.072 (-8.1%)# 02/26/2021 75 0.888 -1.4 Total Hip(Left) 12/31/2022 77 0.702 -2.0 -0.047 (-6.3%)# -0.047 (-6.3%)# 02/26/2021 75 0.748 -1.6 Total Hip(Right) 12/31/2022 77 0.663 -2.3 -0.047 (-6.6%)# -0.047 (-6.6%)# 02/26/2021 75 0.710 -1.9 -- *Denotes significance at 95% confidence level, LSC for AP Spine = 0.022 g/cm2, LSC for Total Hip = 0.027 g/cm2 # Denotes dissimilar scan types or analysis methods Impression: The patient has low bone mass, based on the Right Total Hip T-score. The patient has an estimated ten-year risk of hip fracture of 4.4% and an estimated ten-year risk of major fracture of 10%, based on the WHO FRAX algorithm. No significant bone loss was observed. Discussion: BONE DENSITY IS LOW AT ONE OR MORE SKELETAL SITES. THE PATIENT'S BMD AND CLINICAL RISK FACTORS CONTRIBUTE TO THIS PATIENT'S INCREASED RISK OF FRACTURE. This patient's lowest T-score is low at one or more skeletal sites. It meets the World Health Organization's (WHO) criteria for ?low bone mass? (T-score between -1.0 and -2.5). The patient's 10-year risk of hip fracture as calculated by FRAX exceeds the threshold where pharmacological therapy is recommended by the National Osteoporosis Foundation (NOF). However, all treatment decisions require clinical judgment and consideration of individual patient factors, including patient preferences, comorbidities, previous drug use, risk factors not captured in the FRAX model (e.g., frailty, falls, vitamin D deficiency, increased bone turnover, interval significant decline in bone density) and possible under or overestimation of fracture risk by FRAX. The patient should follow a healthful lifestyle (good nutrition with adequate calcium and vitamin D, and appropriate weight-bearing exercise). Follow-Up: Consider repeating this study in 2 years to reassess this patient's status, or sooner if there is some new clinical indication. Reported by: HILDA LAGUNAS M.D. on 12/31/2022 11:02:00 AM.
== END ==
PROVIDERS: Family Provider Family Medicine; Referring Provider Specialist; Visit Provider Specialist
DX: C61 Malignant neoplasm of prostate (principal); M85.851 Other specified disorders of bone density and structure, right thigh; R97.20 Elevated prostate specific antigen [PSA]
CPT/HCPCS: 36415; 77080; 84153

== ENCOUNTER → 2022-12-31 10:17 | Outpatient (CLI) | payer MEDICARE, OTHER, SELFPAY ==
[2021-02-17 11:41] VITALS: BMI 23.6
[2022-12-31 12:05] LABS: Prostate Specific Antigen < 0.064 ng/mL (0.10-4.00)
== END ==
PROVIDERS: Family Provider Family Medicine; Referring Provider Specialist; Visit Provider Specialist
DX: R97.20 Elevated prostate specific antigen [PSA] (principal)
CPT/HCPCS: 36415; 84153